=== PATIENT | female | born 1960 | race African-American/Black ===

== ENCOUNTER 2025-05-24 06:54 | Day surgery (SDC) | payer BC ==
[2025-05-23 12:38] VITALS: BMI 35.4
[2025-05-24] MEDS ORDERED: Lidocaine 1% w/Epinephrine 1:200K 30 ML VIAL ONE (07:06)
[2025-05-24 07:38] LABS: Hematocrit 36.5 % (34.9-44.5); Hemoglobin 11.8 g/dL (12.0-15.5)
[2025-05-24] MEDS ORDERED: SUGAMMADEX SODIUM 200 MG/2 ML VIAL ONE (08:24)
[2025-05-24] MEDS ORDERED: Rocuronium Bromide 10 MG/ML (10ML VIAL) ONE (08:24)
[2025-05-24] MEDS ORDERED: PROPOFOL 40 ML ONE (08:24)
[2025-05-24] MEDS ORDERED: Ondansetron PF 4 MG/2 ML Vial ONE (08:24)
[2025-05-24] MEDS ORDERED: Lidocaine 1% PF 5 ML VIAL ONE (08:24)
[2025-05-24 09:02] LABS: Anion Gap 15 mmol/L (10-20); BUN (Urea Nitrogen) 13 mg/dL (9.8-20.1); Calc. Creatinine Clearance 85 mL/min (70-130); Calcium 10.2 mg/dL (7.8-10.44); Carbon Dioxide 20 mmol/L (23-31); Chloride 110 mmol/L (98-107); Glucose 98 mg/dL (80-115); Potassium 4.2 mmol/L (3.5-5.1); Sodium 141 mmol/L (136-145)
[2025-05-24] MEDS ORDERED: HYDROmorphone 0.5 MG/0.5 ML SYRINGE ONE (11:48)
[2025-05-24] MEDS ORDERED: oxyCODONE 5 MG TAB ONE (12:14)
== END 2025-05-24 13:08 | disposition home or self-care (01) ==
LOC: CSHSDC 06:54
PROVIDERS: ATTEND Specialist
PROC: 0GBP0ZZ Excision of Left Inferior Parathyroid Gland, Open Approach (ICD-10-PCS; principal; 2025-05-24)
DX: D35.1 Benign neoplasm of parathyroid gland (principal); E21.3 Hyperparathyroidism, unspecified; E78.00 Pure hypercholesterolemia, unspecified; I10 Essential (primary) hypertension; Z90.710 Acquired absence of both cervix and uterus; Z79.899 Other long term (current) drug therapy
CPT/HCPCS: 36415; 80048; 85014; 85018; 88305; 88331; A6258; J1100; J1171; J2250; J2405; J2704; J3010